=== PATIENT | female | born 1940 | race Caucasian/White ===

== ENCOUNTER → 2019-03-15 | Outpatient (CLI) | payer MEDICARE, BC ==
--- NOTE | 2019-03-15 12:11 | PCVCIMAG ---
APPROVED REPORT Study performed: 03/15/2019 09:04:59 EXAM: Comprehensive 2D, Doppler, and color-flow Echocardiogram Patient Location: Echo lab Status: routine BSA: 1.76 HR: 75 bpmBP: 132/78 mmHg Rhythm: NSR Other Information Study Quality: Adequate Risk Factors: Cardiac Risk Factors: HTN, DM, Hyperlipidemia Indications Chest Pain 2D Dimensions IVSd: 10.46 (7-11mm)LVOT Diam: 19.00 (18-24mm) LVDd: 36.90 mm PWd: 10.63 (7-11mm)Ascending Ao: 30.44 (22-36mm) LVDs: 25.75 (25-40mm) Left Atrium: 38.75 (27-40mm) Aortic Root: 29.30 mm LV Single Plane 4CH: 58.86 % LV Single Plane 2CH: 64.85 % Biplane EF: 60.4 % Volumes Left Atrial Volume (Systole) Single Plane 4CH: 35.82 mLSingle Plane 2CH: 35.95 mL LA ESV Index: 21.00 mL/m2 Aortic Valve AoV Peak Jostin.: 1.28 m/s AO Peak Gr.: 6.56 mmHgLVOT Max P.41 mmHg LVOT Max V: 1.16 m/s EMILIANO Vmax: 2.47 cm2 Mitral Valve E/A Ratio: 0.6 MV Decel. Time: 209.49 ms MV E Max Jostin.: 0.67 m/s MV A Jostin.: 1.09 m/s IVRT: 58.82 ms TDI E/Lateral E': 13.40E/Medial E': 16.75 Medial E' Jostin.: 0.04 m/s Lateral E' Jostin.: 0.05 m/s Pulmonary Valve PV Peak Jostin.: 0.83 m/sPV Peak Gr.: 2.77 mmHg Pulmonary Vein P Vein S: 0.60 m/sP Vein A: 0.26 m/s P Vein D: 0.27 m/sP Vein A Dur.: 96.9 msec P Vein S/D Ratio: 2.22 Tricuspid Valve TR Peak Jostin.: 2.25 m/sRAP Estimate: 7.00 mmHg TR Peak Gr.: 20.28 mmHg PA Pressure: 28.00 mmHg Left Ventricle The left ventricle is normal size. There is normal LV segmental wall motion. There is normal left ventricular wall thickness. Left ventricular systolic function is normal. The left ventricular ejection fraction is within the normal range. LVEF is 55-60%. Mild diastolic dysfunction is present (impaired relaxation pattern). Right Ventricle The right ventricle is normal size. The right ventricular systolic function is normal. Atria The left atrium size is normal. The right atrium size is normal. Aortic Valve The aortic valve is normal in structure. No aortic regurgitation is present. There is no aortic valvular stenosis. Mitral Valve Moderate mitral annular calcification Mild mitral regurgitation. No evidence of mitral valve stenosis. Tricuspid Valve The tricuspid valve is normal in structure. Mild tricuspid regurgitation. Pulmonary artery pressure is 28 mmHg. Pulmonic Valve The pulmonary valve is normal in structure. Trace pulmonic regurgitation. Great Vessels The aortic root is normal in size. IVC is normal in size and collapses >50% with inspiration. Pericardium There is no pericardial effusion. <Conclusion> Left ventricular systolic function is normal. There is normal LV segmental wall motion. LVEF is 55-60%. Mild diastolic dysfunction The aortic valve is normal in structure. No aortic regurgitation or stenosis. Moderate mitral annular calcification. Mild mitral regurgitation. Mild tricuspid regurgitation. Pulmonary artery pressure of 28 mmHg. There is no pericardial effusion.
== END | disposition home or self-care (01) ==
LOC: PCVCIMAG 09:01
PROVIDERS: ATTEND Internal Medicine
DX: I08.1 Rheumatic disorders of both mitral and tricuspid valves (principal); E11.9 Type 2 diabetes mellitus without complications; E03.8 Other specified hypothyroidism; E06.3 Autoimmune thyroiditis; R93.1 Abnormal findings on diagnostic imaging of heart and coronary circulation
CPT/HCPCS: 93306